=== PATIENT | female | born 1965 | race Caucasian/White ===

== ENCOUNTER 2016-07-30 09:54 | Emergency (ER) | payer BC ==
[2016-07-30 10:11] VITALS: BP 123/77
--- NOTE | 2016-07-30 10:41 | UC ---
Minor Trauma HPI - HPI Summary HPI Summary: Fell while trail running this morning, landed and skidded on L side. Many abrasions with bleeding, denies pain in L wrist, neck, or teeth. No LOC, vomiting, confusion, or trouble with balance. Has soreness in L knee, but denies twisting and does not think it is broken. Does not want x-ray. - History of Current Complaint Chief Complaint: UCGeneralIllness Stated Complaint: FACIAL INJURY Time Seen by Provider: 07/30/16 10:26 Hx Obtained From: Patient Hx Last Menstrual Period: 04/2016 ?: No Onset/Duration: Sudden Onset Onset Of Pain: Immediate Severity Initially: Moderate Severity Currently: Mild Mechanism Of Injury: Fall From A Standing Position Aggravating Factor(s): Ambulation Alleviating Factor(s): Nothing Associated Signs And Symptoms: Positive: Ecchymosis. Negative: Loss Of Consciousness, Swelling - Allergies/Home Medications Allergies/Adverse Reactions: Allergies Allergy/AdvReac Type Severity Reaction Status Date / Time No Known Allergies Allergy Verified 06/05/14 14:27 Home Medications: Home Medications Cholecalciferol TAB* [Vitamin D TAB*] 1 tab PO DAILY 07/30/16 [History Confirmed 07/30/16] Cyanocobalamin TAB* [Vitamin B12 TAB*] 500 mcg PO DAILY 07/30/16 [History Confirmed 07/30/16] Ibuprofen TAB* [Advil TAB*] 3 tab PO PRN 07/30/16 [History] PMH/Surg Hx/FS Hx/Imm Hx Previously Healthy: Yes - Surgical History Surgical History: Yes Surgery Procedure, Year, and Place: ; wisdom teeth - Family History Known Family History: Positive: Hypertension - Social History Occupation: Employed Full-time Alcohol Use: Weekly Substance Use Type: None Smoking Status (MU): Never Smoked Tobacco Review of Systems Constitutional: Negative Skin: Bruising, Other - abrasions Eyes: Negative ENT: Negative Respiratory: Negative Cardiovascular: Negative Gastrointestinal: Negative Genitourinary: Negative Motor: Negative Neurovascular: Negative Musculoskeletal: Arthralgia - L knee, L shoulder Neurological: Negative Psychological: Negative All Other Systems Reviewed And Are Negative: Yes Physical Exam Triage Information Reviewed: Yes Appearance: Well-Appearing, No Pain Distress, Well-Nourished Vital Signs: Initial Vital Signs Temp 98.4 F 07/30/16 10:04 Pulse 67 06/15/17 10:04 Resp 16 07/30/16 10:04 BP 123/77 07/30/16 10:04 Pulse Ox 98 07/30/16 10:04 Vital Signs Reviewed: Yes Eye Exam: Normal Eyes: Positive: Conjunctiva Clear ENT Exam: Normal ENT: Positive: Normal ENT inspection, Hearing grossly normal, Pharynx normal, TMs normal Dental Exam: Normal Dental: Negative: Percussion Tenderness @, Dental Fracture @ Neck exam: Normal, Other - no bony tenderness Neck: Positive: Supple, Nontender, No Lymphadenopathy Respiratory Exam: Normal Respiratory: Positive: Chest non-tender, Lungs clear, Normal breath sounds, No respiratory distress, No accessory muscle use Cardiovascular Exam: Normal Cardiovascular: Positive: RRR, No Murmur Musculoskeletal Exam: Other - no bony tenderness in L patella or L knee Musculoskeletal: Positive: Strength Intact, ROM Intact Neurological Exam: Normal Neurological: Positive: Alert, Muscle Tone Normal Psychological Exam: Normal Skin Exam: Other - Abrasions to L face, L wrist, L knee. Bruises to L shoulder, L knee. Minor Trauma Course/Dx - Differential Dx/Diagnosis Provider Diagnoses: multiple abrasions. multiple contusions. fall Discharge - Discharge Plan Condition: Stable Disposition: HOME Patient Education Materials: Abrasion (ED), Contusion in Adults (ED) Referrals: Jennifer Pierre MD [Primary Care Provider] - Additional Instructions: There are no signs of broken bones or other problems. All of your skin abrasions should heal within days without problems If you have increasing redness, swelling, or foul drainage, please return here. Expect to have some aching and stiffness in your knee, wrist, and shoulder, though I would expect this to resolve in 3-4 days.
== END 2016-07-30 10:55 | disposition home or self-care (01) ==
LOC: UCEAST 09:54
DX: S00.81XA Abrasion of other part of head, initial encounter (principal); S60.812A Abrasion of left wrist, initial encounter; S80.212A Abrasion, left knee, initial encounter; S40.012A Contusion of left shoulder, initial encounter; S80.02XA Contusion of left knee, initial encounter; W18.30XA Fall on same level, unspecified, initial encounter; Y93.02 Activity, running; Y92.89 Other specified places as the place of occurrence of the external cause
CPT/HCPCS: 99212; G0463

== ENCOUNTER 2018-02-08 11:35 | Emergency (ER) | payer BC ==
[2018-02-08 11:48] VITALS: BP 141/82
--- NOTE | 2018-02-08 11:54 | UC ---
Laceration HPI - HPI Summary HPI Summary: Patient was slicing a potatoe and cut a small lac into the tip of the middle finger on the right hand. 2 days ago, was walking the dog and the leash pulled on her index finger, the finger is sore and brusied. patient deferred xray - History Of Current Complaint Chief Complaint: UCLaceration Stated Complaint: FINGER LACERATION Time Seen by Provider: 02/08/18 11:48 Hx Obtained From: Patient Hx Last Menstrual Period: 04/2016 Laceration Location: Finger Mechanism Of Injury: Sharp Trauma Onset/Duration: Sudden Onset Severity: Mild Pain Intensity: 1 - Allergies/Home Medications Allergies/Adverse Reactions: Allergies Allergy/AdvReac Type Severity Reaction Status Date / Time No Known Allergies Allergy Verified 02/08/18 11:41 PMH/Surg Hx/FS Hx/Imm Hx Previously Healthy: Yes - Surgical History Surgical History: Yes Surgery Procedure, Year, and Place: ; wisdom teeth - Family History Known Family History: Positive: Hypertension - Social History Alcohol Use: Occasionally Substance Use Type: None Smoking Status (MU): Never Smoked Tobacco Review of Systems All Other Systems Reviewed And Are Negative: Yes Constitutional: Positive: Negative Skin: Positive: Other - laceration ENT: Positive: Negative Respiratory: Positive: Negative Cardiovascular: Positive: Negative Gastrointestinal: Positive: Negative Genitourinary: Positive: Negative Motor: Positive: Negative Neurovascular: Positive: Negative Musculoskeletal: Positive: Negative Neurological: Positive: Negative Psychological: Positive: Negative Is Patient Immunocompromised?: No Physical Exam Triage Information Reviewed: Yes Appearance: Well-Appearing, Well-Nourished, Pain Distress Vital Signs: Initial Vital Signs Temp 98.8 F 02/08/18 11:42 Pulse 54 02/08/18 11:42 Resp 18 02/08/18 11:42 BP 141/82 02/08/18 11:42 Pulse Ox 100 02/08/18 11:42 Vital Signs Reviewed: Yes Eye Exam: Normal ENT Exam: Normal Dental Exam: Normal Neck exam: Normal Respiratory Exam: Normal Cardiovascular Exam: Normal Abdominal Exam: Normal Bowel Sounds: Positive: Present Musculoskeletal Exam: Normal Neurological Exam: Normal Psychological Exam: Normal Skin: Positive: Significant Lesion(s) - small laceration, bleeding is controlled , bruising to the DIP joint of the index finger noted Laceration Repair - Laceration Repair 1 Description: Linear Laceration Size After Repair: Length (cm) - 1 Modified For Repair: No Cleansing Completed Via Routine Prep: Yes Irrigation With Pressure Irrigation Device: No Closure Material: Skin Adhesive, SteriStrips Closure Method: Single Layer Laceration Course/Dx - Course/Dx Course Of Treatment: hx obtained, exam performed ,meds reviewed, lac was glued and steri striped. - Differential Dx - Laceration/Wound Differental Diagnoses: Laceration - Diagnosis Provider Diagnosis: Laceration of finger Discharge - Sign-Out/Discharge Documenting (check all that apply): Patient Departure All imaging exams completed and their final reports reviewed: Yes - Discharge Plan Condition: Stable Disposition: HOME Patient Education Materials: Skin Adhesive Care (ED) Referrals: Jennifer Pierre MD [Primary Care Provider] - Additional Instructions: 1. keep the finger clean and dry 2. Let the glue and steri strips fall off on their own. 3. warm water soaks of the index finger and work the range of motion to help with the swelling - Billing Disposition and Condition Condition: STABLE Disposition: Home
== END 2018-02-08 12:15 | disposition home or self-care (01) ==
LOC: UCEAST 11:35
DX: S61.212A Laceration without foreign body of right middle finger without damage to nail, initial encounter (principal); W45.8XXA Other foreign body or object entering through skin, initial encounter; Y92.9 Unspecified place or not applicable
CPT/HCPCS: 12001; 99211; G0463